=== PATIENT | male | born 1955 | race Caucasian/White ===

== ENCOUNTER 2022-10-10 21:40 | Inpatient (IN) | payer MEDICARE, MEDICAID ==
[~2022-10-10] VITALS: Ht 165.1 cm; Wt 79.5 kg
[2022-10-10 22:00] VITALS: BP 118/52; PULSE 72; RESP 17; TEMP 100
[2022-10-11] MEDS ORDERED: IPRATROPIUM/ALBUTEROL 0.5-3(2.5)MG/3ML NEB HHN PRN
[2022-10-11] MEDS ORDERED: ONDANSETRON HCL 4MG/2ML INJ IV PRN
[2022-10-11] MEDS ORDERED: CLONIDINE 0.1MG TABLET PO PRN
[2022-10-11] MEDS ORDERED: MAGNESIUM/ALUMINUM HYDROXIDE/SIMETHICONE 30ML UDC PO PRN
[2022-10-11] MEDS ORDERED: NALOXONE HCL 0.4 MG/ML 1ML VIAL IV PRN
[2022-10-11] MEDS ORDERED: DOCUSATE SODIUM 100MG CAPSULE PO PRN
[2022-10-11] MEDS ORDERED: ACETAMINOPHEN 325MG TABLET PO PRN
[2022-10-11] MEDS ORDERED: GUAIFENESIN 200MG/10ML SUGAR FREE UDC PO PRN
[2022-10-11] MEDS: ACETAMINOPHEN 325MG TABLET PO PRN (03:09)
[2022-10-11 07:45] LABS: CHLORIDE 102 mEq/L (98-107); INDEX HEMOLYSI 1 (1-3); INDEX ICTERIC 1 (1-4); INDEX LIPEMIC 1 (1-3); POTASSIUM 3.4 mEq/L (3.5-5.1); SODIUM 136 mEq/L (136-145)
[2022-10-11 07:48] LABS: BASOPHILS % 0.4 % (0.0-2.0); EOSINOPHILS % 0.3 % (0.0-5.0); HEMATOCRIT. 37.5 % (42.0-52.0); HEMOGLOBIN. 12.8 g/dL (14.0-18.0); LYMPHOCYTES % 19.3 % (20.0-50.0); MEAN CORPUSCULAR HEMOGLOBIN 29.5 pg (28.0-32.0); MEAN CORPUSCULAR HGB CONC 34.2 g/dL (31.0-37.0); MEAN CORPUSCULAR VOLUME 86.3 fL (80.0-94.0); MEAN PLATELET VOLUME 9.3 fl (7.4-10.4); MONOCYTES % 11.2 % (2.0-8.0); NEUTROPHILS % 68.8 % (40.0-76.0); PLATELET 181 x1000/uL (130-400); RED BLOOD CELL COUNT 4.35 mill/uL (4.7-6.1); RED CELL DISTRIBUTION WIDTH 13.4 % (11.6-14.6); WHITE BLOOD COUNT 11.3 x1000/uL (4.5-11.0)
[2022-10-11 07:57] LABS: ALANINE AMINOTRANSFERASE 27 IU/L (13-61); ALBUMIN 2.7 g/dL (3.4-5.0); ASPARTATE AMINOTRANSFERASE 37 IU/L (15-37); CALCIUM 8.2 mg/dL (8.5-10.1); CARBON DIOXIDE 24 mEq/L (21-32); CREATININE 0.7 mg/dL (0.6-1.3); GLUCOSE 109 mg/dL (70-105); PHOSPHORUS 2.9 mg/dL (2.5-4.9); PROTEIN TOTAL 6.7 g/dL (6.0-8.3); UREA NITROGEN BLOOD 17 mg/dL (7-21)
[2022-10-11 08:00] VITALS: BP 127/73; PULSE 79; RESP 18; TEMP 101.1
[2022-10-11] MEDS: HYDROCODONE/ACETAMINOPHEN 7.5/325MG TABLET PO PRN ×2 (09:35→21:34)
[2022-10-11] MEDS: LISINOPRIL 40MG TABLET PO SCH (09:36)
[2022-10-11] MEDS: DEXT 5%/LACTATED RINGERS 1,000 ML IV SCH ×2 (10:26→20:00)
[2022-10-11] MEDS ORDERED: POTASSIUM CHLORIDE 20MEQ TABLET SR PO NR (13:39)
[2022-10-11 20:00] VITALS: BP 110/68; PULSE 75; RESP 17; TEMP 99.1
[2022-10-11] MEDS: ATORVASTATIN CALCIUM 40MG TABLET PO SCH (21:34)
[2022-10-12] MEDS: DEXT 5%/LACTATED RINGERS 1,000 ML IV SCH ×2 (05:07→16:00)
[2022-10-12 08:00] VITALS: BP 109/61; PULSE 81; RESP 17; TEMP 99
[2022-10-12] MEDS: ACETAMINOPHEN 325MG TABLET PO PRN (08:35)
[2022-10-12] MEDS: LISINOPRIL 40MG TABLET PO SCH (08:36)
[2022-10-12 20:00] VITALS: BP 129/76; PULSE 76; RESP 18; TEMP 99
[2022-10-12] MEDS: ATORVASTATIN CALCIUM 40MG TABLET PO SCH (20:51)
[2022-10-13] MEDS: HYDROCODONE/ACETAMINOPHEN 7.5/325MG TABLET PO PRN ×2 (00:34→09:56)
[2022-10-13 08:00] VITALS: BP 133/69; PULSE 70; RESP 18; TEMP 99
[2022-10-13] MEDS: LISINOPRIL 40MG TABLET PO SCH (08:50)
[2022-10-13] MEDS ORDERED: LACTULOSE 20G/30ML UDC PO SCH (09:00)
[2022-10-13] MEDS ORDERED: POTASSIUM CHLORIDE 20MEQ/PACKET PO SCH (10:45)
[2022-10-13 20:00] VITALS: BP 130/65; PULSE 74; RESP 17; TEMP 97.7
[2022-10-13] MEDS: ATORVASTATIN CALCIUM 40MG TABLET PO SCH (21:50)
[2022-10-14] VITALS: BP 117/64; PULSE 63; RESP 17; TEMP 98.1
[2022-10-14 08:00] VITALS: PULSE 72; RESP 18; TEMP 97.5
[2022-10-14] MEDS: LISINOPRIL 40MG TABLET PO SCH (09:31)
[2022-10-14 09:47] LABS: BASOPHILS % 0.4 % (0.0-2.0); EOSINOPHILS % 3.2 % (0.0-5.0); HEMATOCRIT. 38.9 % (42.0-52.0); HEMOGLOBIN. 13.5 g/dL (14.0-18.0); LYMPHOCYTES % 21.4 % (20.0-50.0); MEAN CORPUSCULAR HEMOGLOBIN 29.9 pg (28.0-32.0); MEAN CORPUSCULAR HGB CONC 34.6 g/dL (31.0-37.0); MEAN CORPUSCULAR VOLUME 86.3 fL (80.0-94.0); MONOCYTES % 11.5 % (2.0-8.0); NEUTROPHILS % 63.5 % (40.0-76.0); PLATELET 306 x1000/uL (130-400); RED BLOOD CELL COUNT 4.51 mill/uL (4.7-6.1); RED CELL DISTRIBUTION WIDTH 13.2 % (11.6-14.6); WHITE BLOOD COUNT 6.9 x1000/uL (4.5-11.0)
[2022-10-14 09:52] LABS: CARBON DIOXIDE 26 mEq/L (21-32); CHLORIDE 105 mEq/L (98-107); GLUCOSE 116 mg/dL (70-105); INDEX HEMOLYSI 1 (1-3); INDEX ICTERIC 1 (1-4); INDEX LIPEMIC 1 (1-3); SODIUM 134 mEq/L (136-145); UREA NITROGEN BLOOD 16 mg/dL (7-21)
[2022-10-14 10:00] LABS: CALCIUM 8.9 mg/dL (8.5-10.1); CREATININE 0.8 mg/dL (0.6-1.3)
[2022-10-14 20:00] VITALS: BP 118/67; PULSE 65; RESP 18; TEMP 99.5
[2022-10-14] MEDS: ATORVASTATIN CALCIUM 40MG TABLET PO SCH (21:22)
[2022-10-14] MEDS: ACETAMINOPHEN 325MG TABLET PO PRN (21:27)
[2022-10-15] MEDS: HYDROCODONE/ACETAMINOPHEN 7.5/325MG TABLET PO PRN (00:55)
[2022-10-15 08:00] VITALS: BP 121/76; PULSE 81; RESP 18; TEMP 97.1
[2022-10-15] MEDS: LISINOPRIL 40MG TABLET PO SCH (09:32)
[2022-10-15 20:00] VITALS: BP 117/62; PULSE 63; RESP 19; TEMP 97.5
[2022-10-15] MEDS: ATORVASTATIN CALCIUM 40MG TABLET PO SCH (21:42)
[2022-10-16 08:00] VITALS: BP 153/67; PULSE 72; RESP 18; TEMP 97.5
[2022-10-16] MEDS: LISINOPRIL 40MG TABLET PO SCH (08:41)
[2022-10-16 20:00] VITALS: BP 148/66; PULSE 16; RESP 18; TEMP 97
[2022-10-16] MEDS: ATORVASTATIN CALCIUM 40MG TABLET PO SCH (22:04)
[2022-10-17] MEDS ORDERED: HYDROCODONE/ACETAMINOPHEN 7.5/325MG TABLET PO NR (00:15)
[2022-10-17 08:00] VITALS: BP 106/63; PULSE 77; RESP 18; TEMP 98.4; TEMP 98.5
[2022-10-17] MEDS: LISINOPRIL 40MG TABLET PO SCH (09:07)
[2022-10-17] MEDS ORDERED: LISI40TA13 PO (14:25)
[2022-10-17] MEDS ORDERED: LIP40 PO (14:25)
[2022-10-17] MEDS ORDERED: TOPUD PO (14:27)
[2022-10-17 16:08] VITALS: BP 118/71; PULSE 79; TEMP 98.1; O2SAT 100
== END 2022-10-17 18:30 | disposition home health service (06) | DRG 552 ==
PROVIDERS: ADMIT Psychiatry & Neurology Neurology; ATTEND Internal Medicine
DX: M48.062 Spinal stenosis, lumbar region with neurogenic claudication (principal); G82.20 Paraplegia, unspecified; M47.816 Spondylosis without myelopathy or radiculopathy, lumbar region; E78.5 Hyperlipidemia, unspecified; E87.6 Hypokalemia; I10 Essential (primary) hypertension; Z77.090 Contact with and (suspected) exposure to asbestos; R26.89 Other abnormalities of gait and mobility; F41.9 Anxiety disorder, unspecified; G89.29 Other chronic pain; M47.819 Spondylosis without myelopathy or radiculopathy, site unspecified; Z79.899 Other long term (current) drug therapy; Z91.81 History of falling; Z98.1 Arthrodesis status
CPT/HCPCS: 36415; 80048; 80053; 83735; 84100; 85025; 92523; 93970; 97110; 97112; 97116; 97162; 97165; 97530; 97535; 97760; J7121